=== PATIENT | female | born 1950 | race Caucasian/White ===

== ENCOUNTER → 2018-02-18 | Outpatient (CLI) | payer MEDICARE, BC ==
[~2018-02-18] MED LIST: CALCIUM 500 W/V1 TAB PO; FOSAMAX 35MG35 MG PO; SYNTHROID0.05 MG/TA PO
== END ==
LOC: MC.RAD 01-14 08:00
DX: Z12.31 Encounter for screening mammogram for malignant neoplasm of breast (principal)

== ENCOUNTER 2021-09-21 07:15 | Emergency (ER) | payer MEDICARE, BC ==
[~2021-09-21] VITALS: Ht 162.6 cm; Wt 54.5 kg
[2021-09-21 07:22] VITALS: BP 154/96; PULSE 73; TEMP 97.2
[2021-09-21] MEDS ORDERED: SYNTHROID0.125 MG/T PO (07:48)
== END 2021-09-21 09:07 | disposition home or self-care (01) ==
LOC: COL.ER 07:15
DX: S52.611A Displaced fracture of right ulna styloid process, initial encounter for closed fracture (principal); S52.501A Unspecified fracture of the lower end of right radius, initial encounter for closed fracture; W18.2XXA Fall in (into) shower or empty bathtub, initial encounter; Y93.E1 Activity, personal bathing and showering; Y92.002 Bathroom of unspecified non-institutional (private) residence as the place of occurrence of the external cause

== ENCOUNTER 2021-12-03 14:45 | Outpatient (CLI) | payer MEDICARE, BC ==
[~2021-12-03] VITALS: Ht 162.6 cm; Wt 60.0 kg
[~2021-12-03 14:45] MED LIST changes: +SYNTHROID0.125 MG/T PO
[2021-12-03 15:32] VITALS: BP 131/82; PULSE 67; TEMP 98.2
--- NOTE | 2021-12-03 16:16 | NUR ---
Pt tolerated infusion without issue. IV DC'd. She exits dept with steady gait.
== END 2021-12-03 18:17 | disposition home or self-care (01) ==
LOC: EUO 14:45
DX: M81.0 Age-related osteoporosis without current pathological fracture (principal)
CPT/HCPCS: J3489

== ENCOUNTER → 2022-07-03 | Outpatient (CLI) | payer MEDICARE, BC | LOC: MC.RAD 07:02 | DX: Z12.31 Encounter for screening mammogram for malignant neoplasm of breast (principal) ==